=== PATIENT | male | born 1960 | race Caucasian/White ===

== ENCOUNTER → 2017-04-16 14:03 | Outpatient (CLI) | payer BC, SELFPAY ==
--- NOTE | 2017-04-16 14:08 | ECHOD_ITS ---
Reason For Study: Chest pain Procedure This was a 2D Doppler, Color Flow transthoracic echocardiogram. The exam was of fair technical quality due to body habitus. Exam performed in department. Left Ventricle Normal LV size. Left ventricular systolic function is normal. The estimated ejection fraction is 60 %. No evidence for diastolic dysfunction. No regional wall motion abnormalities noted. Right Ventricle Normal RV size. Normal systolic function. Atria Normal left atrium. Normal right atrium. Positive agitated saline contrast study for a right to left interatrial shunt c/w a PFO vs. ASD. Mitral Valve There is no mitral annular calcification. Normal mitral valve. Trivial mitral valve insufficiency. Tricuspid Valve Normal tricuspid valve. Trivial tricuspid valve insufficiency. Right ventricular systolic pressure estimated to be 20 mmHg. Aortic Valve Trisinus/trileaflet aortic valve. Normal aortic valve. Pulmonic Valve The pulmonic valve is not well visualized. Great Vessels Normal sized aortic root. Pericardium/Pleural No pericardial effusion. Medication 22 gauge I.V. with prn adaptor inserted into right arm. Performed a rapid injection of agitated mix of 9 cc saline and 1cc air to assess for atrial septal defect. MMode/2D Measurements & Calculations LVIDd: 3.8 cm IVSd: 1.3 cm Ao root diam: 3.4 cm LVIDs: 1.7 cm LVPWd: 1.2 cm LA dimension: 4.6 cm RVDd: 4.1 cm FS: 54.5 % LAV(MOD-bp): 54.3 ml LA A4 area: 17.9 cm2 RA A4 area: 15.3 cm2 LAV(MOD-bp) Indexed: 25.8 ml/m2 LAV(MOD-sp2): 59.8 ml LAV(MOD-sp4): 51.0 ml Doppler Measurements & Calculations MV E max lester: 75.9 cm/sec Lat Peak E' Lester: 12.3 cm/sec Med Peak E' Lester: 7.6 cm/sec MV A max lester: 54.4 cm/sec E/E' lat: 6.2 E/E' med: 10.0 MV E/A: 1.4 Ao V2 max: 135.2 cm/sec LV V1 max: 100.8 cm/sec PA V2 max: 117.5 cm/sec Ao max P.3 mmHg LV V1 max P.1 mmHg TR max lester: 206.6 cm/sec TR max P.1 mmHg Interpretation Summary Left ventricular systolic function is normal. The estimated ejection fraction is 60 %. Trivial mitral valve insufficiency. Trivial tricuspid valve insufficiency. Right ventricular systolic pressure estimated to be 20 mmHg. No evidence for diastolic dysfunction. Positive agitated saline contrast study for a right to left interatrial shunt c/w a PFO vs. ASD. Ordering Physician: Cynthia Myles Referring Physician: Cynthia Myles Performed By: Telma Renteria RDCS
== END ==
PROVIDERS: Family Provider Internal Medicine; PCP Internal Medicine; Visit Provider Internal Medicine
DX: R07.89 Other chest pain (principal)
CPT/HCPCS: 93306; A4216

== ENCOUNTER → 2017-05-27 06:34 | Outpatient (CLI) | payer BC, SELFPAY ==
--- NOTE | 2017-05-27 18:37 | STRESSREP ---
Stress Test Report Exercise myocardial perfusion stress test. 57-year-old man with a history of chest pain. Stress protocol: Resting EKG demonstrates sinus bradycardia with a rate of 56 bpm normal intervals and noted resting blood pressure is 122/78 mmHg. The patient exercised according to the regular Angel protocol for total duration of 9 minutes completing stage III of the Angel protocol. The maximum heart rate attained was 155 beats minute which was 95% of maximum predicted heart rate the maximum workload attained was 10.1 metabolic equivalents. The patient maintained sinus rhythm throughout the recording with occasional premature atrial complexes noted. No clinical angina was noted the test was terminated due to shortness of breath. Resting blood pressure is 122/78 with a peak blood pressure 180/92 mmHg. Rate pressure product was 27,000. Myocardial perfusion protocol. 11.7 mCi of technetium 99m sestamibi was injected at rest. The patient exercised according to regular Angel protocol for 9 minutes attaining 95% maximum predicted heart rate and a workload of 10.1 metabolic equivalents. At peak exercise 33.3 mCi of technetium 99m sestamibi was injected stress images were obtained stress and rest images were reconstructed and compared in the short axis vertical long horizontal long axis. Gated images were also obtained. Perfusion SPECT analysis. Review of the stress images demonstrate normal uptake of tracer noted in all areas of the myocardium. The resting images similarly demonstrate a patent with perfusion in all areas of the myocardium. No previous infarct is noted no ischemia is present. Gated SPECT analysis: The gated ejection fraction is 61%. Conclusion: Exercise myocardial perfusion stress test with no evidence of ischemia at a high workload. Excellent functional capacity. No symptoms noted. Preserved ejection fraction.
== END ==
PROVIDERS: Family Provider Internal Medicine; PCP Internal Medicine; Visit Provider Internal Medicine Cardiovascular Disease
DX: R00.1 Bradycardia, unspecified (principal); R06.09 Other forms of dyspnea
CPT/HCPCS: 78452; 93017; A9500; A4216

== ENCOUNTER → 2017-09-04 10:05 | Outpatient (CLI) | payer BC, SELFPAY ==
--- NOTE | 2017-09-04 10:08 | ECHOTEE_ITS ---
Reason For Study: PFO Medication Topex topical spray given x3 metered doses orally. KAYLAH probe passed with minimal difficulty. No complications were noted. Fentanyl 50 mcg given slow IVP. Versed 2 mg given slow IVP. Performed a rapid injection of agitated mix of 9 cc saline and 1cc air to assess for atrial septal defect. Left Ventricle Normal LV size. Left ventricular systolic function is normal. The estimated ejection fraction is 65 %. No regional wall motion abnormalities noted. Right Ventricle Normal RV size. Normal systolic function. Atria Patent foramen ovale. Normal left atrium. Normal right atrium. Mitral Valve Normal mitral valve. Mild (1+) eccentric mitral valve insufficiency. Tricuspid Valve Normal tricuspid valve. Aortic Valve Normal aortic valve. Trisinus/trileaflet aortic valve. Pulmonic Valve Normal pulmonic valve. Vessels Normal aortic root. The pulmonary artery is normal size. Pericardium No pericardial effusion. Interpretation Summary Normal LV size. Left ventricular systolic function is normal. The estimated ejection fraction is 65 %. Patent foramen ovale. Mild (1+) eccentric mitral valve insufficiency. Ordering Physician: Roque Berger Referring Physician: GENNY GUZMAN Performed By: Eve Andrade RDCS ??? Reason For Study: PFO Interpretation Summary Normal LV size. Left ventricular systolic function is normal. The estimated ejection fraction is 65 %. Patent foramen ovale. Mild (1+) eccentric mitral valve insufficiency. Ordering Physician: Roque Berger Referring Physician: GENNY GUZMAN Performed By: Eve Andrade RDCS
== END ==
PROVIDERS: Family Provider Internal Medicine; PCP Internal Medicine; Visit Provider Internal Medicine Cardiovascular Disease
DX: Q21.1 Atrial septal defect (principal)
CPT/HCPCS: 93312; 93320; 93325; J7040

== ENCOUNTER → 2018-12-20 08:06 | Outpatient (CLI) | payer BC, SELFPAY ==
[2018-12-20 08:34] LABS: Absolute Lymphocyte Count 1.93 X10^3/uL (0.83-4.51); Absolute Neutrophil Count 2.8 X10^3/uL (2.0-7.7); Basophil# 0.05 X10^3/uL; Basophil% 0.9 % (0-1); Eosinophil# 0.16 X10^3/uL; Lymphocyte # 1.93 X10^3/ul (4.0); Lymphocyte % 35.6 % (19-41); Mean Corpuscular Volume 91.1 fL (80-94); Mean Platelet Vol. 9.5 fl (6.2-12.0); Monocyte# 0.52 X10^3/uL; Monocyte% 9.6 % (0-10); NRBC Flagged by Analyzer 0 % (0-5); Neutrophil # 2.75 X10^3/uL (2.7-7.7); Neutrophil % 50.7 % (47-70); Platelet Count 252 K/mm3 (150-450); RBC Distribution Width CV 11.7 % (11.6-14.6); RBC Distribution Width SD 39.5 fl (35.1-43.9); Red Blood Count 5.16 M/mm3 (4.6-6.2); White Blood Count 5.4 K/mm3 (4.4-11.0)
[2018-12-20 09:26] LABS: ALB/GLOB Ratio 1.2 RATIO (0.9-2.4); AST(SGOT) 34 U/L (15-37); Alanine Aminotransfer ALT/SGPT 57 U/L (16-61); Albumin, Serum 3.9 g/dL (3.2-5.0); Alkaline Phosphatase 64 U/L (45-117); Anion Gap 4 (5-15); BUN 15 mg/dL (7-18); BUN/Creat Ratio 15.9 RATIO (10-20); Calcium,Total 9.3 mg/dL (8.5-10.1); Chloride 107 mmol/L (98-107); Creatinine, Serum 0.94 mg/dL (0.70-1.30); EST Glomerular Filtration Rate 87 mL/min (>60); Est Glom Filt Rate - Afr Amer 105 mL/min (>60); Globulin 3.2 g/dL (2.2-4.2); Glucose 128 mg/dL (74-106); Potassium 4.4 mmol/L (3.5-5.1); Protein, Total 7.1 g/dL (6.4-8.2); Sodium Level 140 mmol/L (136-145)
[2018-12-22 14:08] LABS: CHOLESTEROL TOTAL 205 mg/dL (100-199); HDL-C 49 mg/dL (>39); HDL-P TOTAL 40.7 umol/L (>=30.5); SMALL LDL-P 1072 nmol/L (<=527); TRIGLYCERIDES 160 mg/dL (0-149)
[2018-12-22 14:38] LABS: INSULIN RESISTANCE SCORE 45 (<=45); LDL SIZE 20.2 nm (>20.5); LDL-C 124 mg/dL (0-99); LDL-P 1687 nmol/L (<1000)
== END ==
PROVIDERS: Family Provider Internal Medicine; PCP Internal Medicine; Referring Provider Internal Medicine; Visit Provider Internal Medicine
DX: E78.00 Pure hypercholesterolemia, unspecified (principal)
CPT/HCPCS: 36415; 80053; 80061; 83704; 84443; 85025

== ENCOUNTER → 2019-05-29 | Outpatient (CLI) | payer BC, SELFPAY ==
[2017-05-15 10:08] VITALS: BMI 30.2
--- NOTE | 2019-05-29 09:05 | RAD_ITS ---
STUDY: X-RAY CHEST REASON FOR EXAM: Male, 59 years old. COUGH, SOB AND SOME CHEST PAINS X 4-5 DAYS. TECHNIQUE: PA and lateral views of the chest. COMPARISON: None. FINDINGS: The lungs are clear and expanded. There is no demonstrated pleural abnormality. Normal size heart. Normal mediastinum and margot. Normal visualized pulmonary arteries. There is atherosclerotic tortuosity of the aortic arch and descending thoracic aorta. There are mild degenerative changes of the visualized thoracic spine. Normal visualized ribs, clavicles, and shoulders. There is no demonstrated abnormality of the visualized soft tissue structures of the upper abdomen. RAD/Chest PA and Lateral IMPRESSION: No acute abnormality is seen. Electronically Signed: Maynor Alexander, at 9:49 EDT , Service support ,
== END | disposition home or self-care (01) ==
LOC: HPRAD 09:01
PROVIDERS: PCP Internal Medicine; Referring Provider Internal Medicine; Visit Provider Internal Medicine
DX: Z03.818 Encounter for observation for suspected exposure to other biological agents ruled out (principal)
CPT/HCPCS: 71046

== ENCOUNTER 2020-05-10 08:49 | Outpatient (RCR) | payer BC, SELFPAY ==
[2017-05-15 10:08] VITALS: BMI 30.2
[2020-05-10] MEDS: COVID-19 VACC, MRNA(PFIZER)/PF 30 MCG/0.3 ML SYRINGE IM (17:51)
[2020-05-31] MEDS: COVID-19 VACC, MRNA(PFIZER)/PF 30 MCG/0.3 ML SYRINGE IM (18:09)
== END 2020-05-10 23:59 ==
LOC: IMMUN 08:49
PROVIDERS: PCP Internal Medicine; Visit Provider Family Medicine
DX: Z23 Encounter for immunization (principal)
CPT/HCPCS: 0001A; 0002A; 91300

== ENCOUNTER 2020-12-07 16:04 | Outpatient (CLI) | payer BC, SELFPAY ==
[2020-12-07] MEDS: 0.9% Saline Lock 10 ML Syringe IV (16:40)
[2020-12-07 16:50] VITALS: BP 133/64; PULSE 112; RESP 16; TEMP 36.7; O2SAT 95; BMI 27.1
[2020-12-07 17:28] VITALS: BP 118/77; PULSE 56; RESP 16; TEMP 36.7; O2SAT 97
[2020-12-07 18:20] VITALS: BP 126/84; PULSE 55; RESP 16; TEMP 36.6; O2SAT 99
== END 2020-12-07 18:21 | disposition home or self-care (01) ==
LOC: MS3OUT 16:04 → MS3 16:05
PROVIDERS: PCP Internal Medicine; Referring Provider Nurse Practitioner Adult Health; Visit Provider Nurse Practitioner Adult Health
DX: Z23 Encounter for immunization (principal); U07.1 COVID-19
CPT/HCPCS: J7050; M0243; A4216; Q0240

== ENCOUNTER → 2021-12-08 | Outpatient (CLI) | payer BC, SELFPAY ==
--- NOTE | 2021-12-08 09:13 | ECHOD_ITS ---
Reason For Study: CHEST PAIN Procedure This was a 2D Doppler, Color Flow transthoracic echocardiogram. Exam performed in department. Left Ventricle Normal LV size. The estimated ejection fraction is 55 %. No evidence for diastolic dysfunction. No regional wall motion abnormalities noted. Right Ventricle Normal RV size. Normal systolic function. Atria Normal left atrium. Normal right atrium. Mitral Valve There is no mitral valve stenosis. No mitral valve insufficiency. Tricuspid Valve There is no tricuspid stenosis. Trivial tricuspid valve insufficiency. Unable to estimate RV systolic pressure due to insufficient tricuspid regurgitant envelope. Aortic Valve Trisinus/trileaflet aortic valve. There is no aortic stenosis. Trivial aortic valve insufficiency. Pulmonic Valve There is no pulmonic valvular stenosis. No pulmonic valve insufficiency. Great Vessels Normal aortic root. Pericardium/Pleural No pericardial effusion. MMode/2D Measurements & Calculations LVIDd: 5.2 cm IVSd: 0.87 cm Ao root diam: 3.5 cm LVIDs: 3.3 cm LVPWd: 0.82 cm RVDd: 4.6 cm FS: 36.2 % LAV(MOD-sp4): 46.7 ml LVAd ap4: 36.4 cm2 SV(MOD-sp4): 69.1 ml LVLd ap4: 9.8 cm EDV(MOD-sp4): 109.3 ml EDV(sp4-el): 115.0 ml LVAs ap4: 19.3 cm2 LVLs ap4: 8.2 cm ESV(MOD-sp4): 40.2 ml ESV(sp4-el): 38.3 ml EF(MOD-sp4): 63.2 % EF(sp4-el): 66.7 % SV(sp4-el): 76.7 ml LA A4 area: 18.6 cm2 LA dimension(2D): 4.2 cm RA A4 area: 18.6 cm2 Time Measurements MV dec time: 0.23 sec Doppler Measurements & Calculations MV E max lester: 52.8 cm/sec Lat Peak E' Lester: 11.8 cm/sec Med Peak E' Lester: 7.6 cm/sec MV A max lester: 49.3 cm/sec E/E' lat: 4.5 E/E' med: 6.9 MV E/A: 1.1 MV V2 max: 50.5 cm/sec Ao V2 max: 128.9 cm/sec MV max P.0 mmHg MV dec slope: 231.1 cm/sec2 Ao max P.7 mmHg MV V2 mean: 32.5 cm/sec Ao V2 mean: 91.0 cm/sec MV mean P.46 mmHg Ao mean P.8 mmHg MV V2 VTI: 25.4 cm Ao V2 VTI: 29.3 cm LV V1 max: 100.1 cm/sec PA V2 max: 102.9 cm/sec LV V1 max P.0 mmHg PA V2 mean: 68.5 cm/sec LV V1 mean P.1 mmHg LV V1 mean: 65.6 cm/sec LV V1 VTI: 23.1 cm ECHO/Echo Complete Interpretation Summary The estimated ejection fraction is 55 %. No evidence for diastolic dysfunction. Trivial aortic valve insufficiency. Ordering Physician: Cynthia Myles Referring Physician: Cynthia Myles Performed By: Samantha Larios RCS
== END | disposition home or self-care (01) ==
PROVIDERS: PCP Internal Medicine; Referring Provider Internal Medicine; Visit Provider Internal Medicine
DX: R07.9 Chest pain, unspecified (principal)
CPT/HCPCS: 93306

== ENCOUNTER → 2021-12-11 | Outpatient (CLI) | payer BC, SELFPAY ==
--- NOTE | 2021-12-11 11:05 | STRESSREP ---
Stress Test Report Date: 12-11-2021 Procedure: Exercise tolerance test/imaging study Indications: Chest pain Consent: Per the patient Procedure: The patient exercised on a Angel protocol for 9 minutes completing Stage III achieving a peak heart rate of 153 bpm (96% predicted maximal heart rate) with resting blood pressure of 120/72 mmHg and a peak blood pressure 164/74 mmHg and a peak MET capacity of 10 METs. The baseline ECG demonstrated sinus bradycardia. The peak exercise ECG demonstrated no obvious ECG changes. There was an isolated PVC during exercise. The functional capacity was considered good. There was no complaint of chest discomfort during exercise or recovery. The examination was discontinued secondary to leg discomfort. Impression: 1. Technically adequate (percent predicted maximal heart rate greater than 85%) exercise tolerance test 2. Peak exercise ECG with no obvious ECG change 3. There was an isolated PVC during exercise 4. Nuclear images pending Myocardial perfusion imaging study: Technique: The patient was injected with 11.8 mCi of technetium 99m Cardiolite and subsequently rest SPECT Cardiolite nuclear imaging was obtained in the horizontal long, vertical long, and short axis views. The patient exercised on a Angel protocol for 9 minutes completing Stage III achieving a peak heart rate of 153 bpm (96% predicted maximal heart rate) with resting blood pressure of 120/72 mmHg and a peak blood pressure 164/74 mmHg and a peak MET capacity of 10 METs. The patient was injected with 33.3 mCi of technetium 99m Cardiolite and subsequently stress SPECT Cardiolite nuclear imaging was obtained in the horizontal long, vertical long, and short axis views. A gated Cardiolite study at peak stress was obtained. Interpretation: Rest and stress SPECT Cardiolite nuclear imaging status post realignment, normalization, and attenuation correction, demonstrates relative uniform tracer uptake and myocardial perfusion appearing within normal limits. There is end systolic thickening and brightening. The gated Cardiolite study demonstrates myocardial thickening and inward wall motion. The reported LVEF is 66%. Impression: 1. Relative uniform tracer uptake and myocardial perfusion appearing within normal limits. 2. The gated Cardiolite study reports an LVEF of 66%. This note was generated with [employer] software. It may contain incorrect words, spelling, and punctuation that were not noted in checking the note before signing.
== END | disposition home or self-care (01) ==
PROVIDERS: PCP Internal Medicine; Referring Provider Internal Medicine; Visit Provider Internal Medicine
DX: R41.0 Disorientation, unspecified (principal)
CPT/HCPCS: 78452; 93017; A9500; A4216

== ENCOUNTER → 2022-04-03 | Outpatient (CLI) | payer BC, SELFPAY ==
--- NOTE | 2022-04-03 09:24 | US_ITS ---
STUDY: ABDOMINAL ULTRASOUND - RIGHT UPPER QUADRANT REASON FOR VISIT: Male, 62 years old FATTY LIVER TECHNIQUE: Ultrasound evaluation of the right upper quadrant was performed with real-time and static girard-scale imaging. TECHNICAL QUALITY: Adequate. COMPARISON: None. FINDINGS: Liver: The liver measures 18.7 cm. There is diffusely increased echogenicity of the liver. The bile ducts are within normal limits. There is hepatic color flow. The direction of portal flow is hepatopetal. There is no demonstrated mass lesion. There is focal fatty sparing adjacent to the gallbladder. Gallbladder: Normal distended gallbladder. The gallbladder wall measures 2.7 mm. There is a negative sonographic Mojica''s sign. There is no pericholecystic fluid. There are no gallstones. Common Bile Duct (C.B.D.): The common bile duct measures 4.8 mm. Pancreas: Suboptimally visualized due to bowel gas producing artifact Right Kidney: Normal size of the right kidney. The right kidney measures 11.5 x 5.5 x 6.3 cm. Normal renal cortex. The right cortex measures 2 cm. There is no demonstrated renal mass or cyst. There is no right hydronephrosis. US/Liver IMPRESSION: Enlarged fatty infiltrated liver.. No evidence for gallstones or acute inflammation. Suboptimal visualization of pancreas which may be better assessed with CAT scan if indicated Electronically Signed: Aleksander Downey MD at 19:36 EST ,
== END | disposition home or self-care (01) ==
PROVIDERS: PCP Internal Medicine; Referring Provider Internal Medicine; Visit Provider Internal Medicine
DX: K76.0 Fatty (change of) liver, not elsewhere classified (principal)
CPT/HCPCS: 76705

== ENCOUNTER → 2023-10-07 | Outpatient (CLI) | payer OTHER, SELFPAY ==
--- NOTE | 2023-10-07 11:16 | US_ITS ---
STUDY: SUPERFICIAL ULTRASOUND - LEFT LEG REASON FOR EXAM: Male, 63 years old. leg mass, left TECHNIQUE: A superficial ultrasound was performed with real-time and static girard-scale imaging. COMPARISON: None. FINDINGS: Multiple longitudinal and transverse 4 cm the left leg confirm a 0.5 x 1.8 cm oval hypoechoic mass of the subcutaneous fat of uncertain etiology and significance, possibly a chronic hematoma. US/Ext Non Vasc Limited/Soft Tiss IMPRESSION: Ultrasound confirms a 1.8 cm oval hypoechoic mass, possible chronic hematoma of the subcutaneous fat Electronically Signed: Chandler uH MD at 13:58 EDT ,
== END | disposition home or self-care (01) ==
LOC: US 11:13
PROVIDERS: PCP Internal Medicine; Referring Provider Internal Medicine; Visit Provider Internal Medicine
DX: R22.42 Localized swelling, mass and lump, left lower limb (principal)
CPT/HCPCS: 76882

== ENCOUNTER 2024-01-27 08:41 | Day surgery (SDC) | payer OTHER, SELFPAY ==
[2024-01-27] VITALS (13 sets, daily range): BP systolic 114–137; BP diastolic 73–92; PULSE 55–85; RESP 16–18; TEMP 36.3–36.8; O2SAT 90–100; BMI 28.1
[2024-01-27] MEDS: Lactated Ringers 1,000 ML 15 ML IV (09:15)
--- NOTE | 2024-01-27 09:15 | EKG12_ITS ---
Test Reason : pre op Blood Pressure : */* mmHG Vent. Rate : 55 BPM Atrial Rate : 55 BPM P-R Int : 214 ms QRS Dur : 88 ms QT Int : 418 ms P-R-T Axes : 23 4 9 degrees QTcB Int : 399 ms Sinus bradycardia with 1st degree A-V block Inferior infarct (cited on or before 16-Jul-2003) Abnormal ECG When compared with ECG of 16-Jul-2003 09:02, [place] interval has increased Confirmed by Simone Oconnor ([id number]), communications editor RAÚL SOFIA ([id number]) on 01/28/2024 1:52:38 PM Referred By: Julian Allred Confirmed By: Simone Oconnor
--- NOTE | 2024-01-27 09:22 | PCM.PRE.AN2 ---
ASA Classification* ASA Classification ASA Classification: 2 Assessment & Plan Anesthesia* Anesthesia Assessment Anesthesia Assessment: Discussed sedation and/or anesthesia options, risks, benefits, and alternatives with patient/parents/legal guardian/POA. Questions invited. The patient/parents/legal guardian/POA seems to understand and agrees to proceed with anesthesia plan. Reviewed the physical assessment, medical history, allergy history and patient home medications list prior to surgery/procedure/anesthetic and documented any changes. Performed airway and anesthesia risk assessments. Anesthesia Type Anesthesia Type: General Anesthesia Focused Assessment* Temperature: 97.3 F Pulse Rate: 55 Blood Pressure: 126/86 Respiratory Rate: 16 Pulse Ox: 100 Airway Assessment Mouth opens: >3 cm Mallampati Score: II Focused Labs Anesthesia Preop lab: CBC WBC 5.4 K/mm3 (4.4-11.0) 12/20/18 08:11 RBC 5.16 M/mm3 (4.6-6.2) 12/20/18 08:11 Hgb 16.0 g/dL (13.0-16.5) 12/20/18 08:11 Hct 47.0 % (40-54) 12/20/18 08:11 Plt Count 252 K/mm3 (150-450) 12/20/18 08:11 CHEMISTRY Potassium 4.4 mmol/L (3.5-5.1) 12/20/18 08:11 Sodium 140 mmol/L (136-145) 12/20/18 08:11 BUN 15 mg/dL (7-18) 12/20/18 08:11 Creatinine 0.94 mg/dL (0.70-1.30) 12/20/18 08:11 Glucose 128 mg/dL (74-106) H 12/20/18 08:11 TSH 1.50 uIU/mL (0.358-3.74) 12/20/18 08:11 COAG Pre-Assessment Diagnosis/Proposed Procedure Planned Operative Procedure(s): ROBOTIC ASSISTED UMBILICAL HERNIA REPAIR WITH MESH Anesthesia History Anesthesia History - wound care center consultant: Anesthesia History - wound care center consultant Hx Hospitalization No 01/20/24 12:57 Any Problems With Anesthesia Yes: SLOW TO AWAKEN 01/20/24 12:57 Cholinesterase deficiency No 01/20/24 12:57 You/Your Family Experience No 01/20/24 12:57 fever (hyperthermia) with Relationship Recent Exposure to Contagious No 01/27/24 09:02 Disease Does patient have nerve No 01/20/24 12:57 stimulator Patient instructed to have device shut off --Does patient have Pacemaker No 01/27/24 09:02 or ICD? When Was Last Pacemaker Check QUESTION #4 FULL TEXT: You/Your Family Experience fever (hyperthermia) with Anesthesia Last Oral Intake Last Oral intake: Last Oral Intake NPO since Meds taken in AM with sips of water? Meds patient instructed to take am of surgery PONV PONV - wound care center consultant: PONV - wound care center consultant Female No 01/20/24 12:57 HX of Motion Sickness No 01/20/24 12:57 HX of N/V After Surgery No 01/20/24 12:57 Non-Smoker Yes 01/20/24 12:57 Duration of Surgery greater Yes 01/20/24 12:57 than 60 minutes Number of Risk Factors 2 01/20/24 12:57 PONV Score Moderate Risk 01/20/24 12:57 Height & Weight Height & Weight: Anesthesia: Height & Weight Height 5 ft 10 in 01/27/24 09:02 Weight: 89 kg 01/27/24 09:02 Body Mass Index (BMI) 28.1 01/27/24 09:02 Respiratory Assessment Respiratory Assessment - wound care center consultant: Respiratory Tract Infection Hx - wound care center consultant Hx Respiratory Tract Infection No 01/20/24 12:57 STOP Sleep Apnea STOP Sleep Apnea - wound care center consultant: STOP Sleep Apnea - wound care center consultant Hx Hypertension No 01/20/24 12:57 Hx Sleep Apnea No 01/20/24 12:57 CPAP BIPAP Do you snore loudly (louder No 01/20/24 12:57 than talking or can be heard Do you often feel tired/ No 01/20/24 12:57 fatigued/ sleepy during daytime? Has anyone observed you stop No 01/20/24 12:57 breathing during sleep? STOP Results Negative 01/20/24 12:57 QUESTION #5 FULL TEXT : Do you snore loudly (louder than talking or can be heard through closed doors)? Tobacco Use History Tobacco Use History - wound care center consultant: Tobacco Use History - wound care center consultant Tobacco Use Smoking Status Never smoker 01/20/24 12:57 Hx Tobacco Use No 01/20/24 12:57 Years Smoking Packs Smoked per Day Smoking Cessation Date was within the last 15 years Hx Smoking Cessation Date Hx Smoking Cessation Counseling Hematologic Medial History Hematologic Hx - wound care center consultant: Hematologic Medical Hx - documentation manager Hx of Blood Transfusion No 01/20/24 12:57 Hx of Transfusion in last 3 No 01/20/24 12:57 Months Date of Last Transfusion (if within last 3 months) Ever experience any problems No 01/20/24 12:57 with transfusion(s)? Specify any problems Hx of Preganancy in last 3 N/A 01/20/24 12:57 Months Nurse Filling Out Transfusion DSCHRIBER 01/20/24 12:57 & Questions: Date: 01/20/24 01/20/24 12:57 Time: 12:59 01/20/24 12:57 Patient unable to answer at this time (ie. confused, unrespo /Reproduction History /Reproductive History - wound care center consultant: /Reproductive Hx- wound care center consultant Hx Now No 01/20/24 12:57 Gestational Age (in weeks): EDC: Hx Hx Para Hx Section SAB No 01/20/24 12:57 Active Medications Active Medications: Current Medications Generic Name Dose Route Start Last Admin Trade Name Freq PRN Reason Stop Dose Admin Cefazolin Sodium 2 gm/ N/A 20 mls @ 400 mls/hr 01/27/24 10:30 IV 01/27/24 10:32 PREOP ONE Lactated Ringer's 1,000 mls @ 15 mls/hr 01/27/24 09:00 01/27/24 09:15 IV 02/01/24 22:19 15 mls/hr .Q48H SARA Administration Protocol PFSH Medical History Hx of closed fracture of nasal bones Wears hearing aid Loss of hearing Marijuana use Alcohol use History of ulceration Non-smoker Cardiology follow-up encounter History of echocardiogram History of stress test Hx of fracture of ankle Umbilical hernia without obstruction or gangrene Metabolic syndrome Fatty liver Chemical exposure Obesity GERD (gastroesophageal reflux disease) Hyperlipidemia Home Medications ?Medication ?Instructions ?Recorded ?Last Taken ?Type fenofibrate nanocrystallized 48 mg 48 mg PO QDAY 90 days #90 tabs 05/14/17 Unknown History tablet omeprazole 40 mg capsule,delayed 40 mg PO QDAY 90 days #90 caps 05/14/17 Unknown History release pravastatin 20 mg tablet 80 mg PO QHS 90 days #360 tabs 01/15/24 Unknown History Allergy/AdvReac Type Severity Reaction Status Date / Time No Known Allergies Allergy Verified 01/27/24 09:02 Family History Brother Cancer Pancreatic cancer Sister Cancer kidney cancer Father Cancer glioma Mother Hypertension Sister Heart disease Congenital heart disease Surgical History Hx of colonoscopy History of carpal tunnel surgery of right wrist History of carpal tunnel surgery of left wrist Social History Smoking Status: Never smoker alcohol intake: never caffeine: Yes Type: coffee Number of servings: 4 Review of Systems (Anesthesia) ROS Narrative System reviewed and no additional complaints, except as documented.
--- NOTE | 2024-01-27 09:24 | HP.PCM_ITS ---
HPI - General General Date of Admission: 01/27/24 Date of Service: 01/27/24 Chief Complaint: umbilical hernia HPI Narrative JUAN CARLOS BARRON, is a 63 M who presents for elective robotic repair of umbilical hernia [facility] Medical History Hx of closed fracture of nasal bones Wears hearing aid Loss of hearing Marijuana use Alcohol use History of ulceration Non-smoker Cardiology follow-up encounter History of echocardiogram History of stress test Hx of fracture of ankle Umbilical hernia without obstruction or gangrene Metabolic syndrome Fatty liver Chemical exposure Obesity GERD (gastroesophageal reflux disease) Hyperlipidemia Home Medications ?Medication ?Instructions ?Recorded ?Last Taken ?Type fenofibrate nanocrystallized 48 mg 48 mg PO QDAY 90 days #90 tabs 05/14/17 Unknown History tablet omeprazole 40 mg capsule,delayed 40 mg PO QDAY 90 days #90 caps 05/14/17 Unknown History release pravastatin 20 mg tablet 80 mg PO QHS 90 days #360 tabs 01/15/24 Unknown History Allergy/AdvReac Type Severity Reaction Status Date / Time No Known Allergies Allergy Verified 01/27/24 09:02 Family History Brother Cancer Pancreatic cancer Sister Cancer kidney cancer Father Cancer glioma Mother Hypertension Sister Heart disease Congenital heart disease Surgical History Hx of colonoscopy History of carpal tunnel surgery of right wrist History of carpal tunnel surgery of left wrist Social History Smoking Status: Never smoker alcohol intake: never caffeine: Yes Type: coffee Number of servings: 4 Vital Signs Vital Signs Vital Signs: 01/27/24 09:02 01/27/24 09:02 01/27/24 09:23 Temperature 97.3 F L 97.3 F L Temperature Source Temporal Pulse Rate 55 L 55 L Respiratory Rate 16 16 Respiratory Pattern Normal Blood Pressure 126/86 H 126/86 H Blood Pressure Mean 99 Blood Pressure Source Monitor Blood Pressure Position Semi-Fowlers Blood Pressure Location Left Arm Pulse Ox 100 100 Oxygen Delivery Method Room Air Weight Weight: 196 lb 3.382 oz Body Mass Index (BMI) 28.1 Physical Exam Narrative AAO x 3 abd soft and non tender umbilical hernia unchanged Assessment & Plan Assessment/Plan (1) Umbilical hernia without obstruction or gangrene: PLAN: Plan scheduled for robotics repair with mesh Charges/Coding Visit Charges Inpatient E&M: 43490 Init Hosp L1
[2024-01-27] MEDS: Cefazolin 2 GM in Syringe IV (10:08)
[2024-01-27] MEDS: Gentamicin 80 MG/2 ML Vial (10:56)
[2024-01-27] MEDS: Bupiv/Epi 0.25% 30 ML Vial (14:42)
--- NOTE | 2024-01-27 15:04 | EX.PCM.DISCH ---
Discharge Instructions Diet Discharge Diet: Light diet - advance as tolerated Activity Discharge Activity: May Shower Ice area for (Minutes): 30 Lifting Restrictions: no lifting over 20 pounds for 6 weeks Additional Activity Instructions:: wear abdominal binder for comfort Dressing / Incision Call your doctor if your incision/area has: Continuous Slow Oozing, Sudden Increased Bleeding, Increased Pain/ Swelling, Increased Redness, Foul Smelling Discharge, Swelling at the incision site and - Call your doctor if you observe: Fever of 101 or Higher Remove Dressing in: 1 week Cleanse incision/area with: Soap & Water Follow Up Care Please Follow Up With: Julian Allred MD When: 2 weeks Test Results: Test results from this visit will be discussed in further detail at your follow-up appointment, if applicable. Discharge Plan Admission Primary Reason for Your Visit: umbilical hernia repair Attending Provider: Julian Allred Primary Care Provider: Cynthia Myles Instructions Print Language: Marshallese Discharge Orders/Prescriptions Prescriptions: New oxycodone-acetaminophen [Percocet] 5-325 mg tablet 1 tab PO Q8H PRN (Reason: pain) 3 Days Qty: 14 0RF No Action omeprazole 40 mg capsule,delayed release(DR/EC) 40 mg PO QDAY 90 Days Qty: 90 Patient Comments: fenofibrate nanocrystallized 48 mg tablet 48 mg PO QDAY 90 Days Qty: 90 Patient Comments: pravastatin 20 mg tablet 80 mg PO QHS 90 Days Qty: 360 Patient Comments: Referrals / Follow Up: Cynthia Myles DO [Primary Care Provider] - Disposition Disposition (needs filled in before D/C Order can be placed): Home, Self Care
--- NOTE | 2024-01-27 15:13 | PCM.POST.ANE ---
Anesthesia: Postop Eval I Current Vital Signs Temperature: 97.4 F Pulse Rate: 71 Blood Pressure: 132/80 Respiratory Rate: 18 Pulse Ox: 93 Assessment Airway patent: Yes Spontaneous unlabored respirations: Yes nausea: No Vomiting: No Anesthesia Complication: No Fluid Hydration Crystalloid volume administer (ml): 2,000 Total IV fluid infused: 2,000 Progress Note Anesthesia document: Postop Eval 1 completed: Yes
--- NOTE | 2024-01-27 15:33 | OP.PCM_ITS ---
Problems Associated Problem List Diagnoses (1) Umbilical hernia without obstruction or gangrene: Operative Report (Standard) Operative Information Surgery/Procedure Performed: Attempted robotic umbilical hernia repair converted to open umbilical hernia repair Surgeon: Julian Allred Date of Procedure: 01/27/24 Procedure Start Time: 10:33 Procedure Stop Time: 15:04 Pre-Operative Diagnosis: Umbilical hernia Post-Operative Diagnosis: Same Select all DRAINS/GRAFTS/IMPLANTS that apply: None Type of Anesthesia: General and Local Special Medications: 2 g Ancef IV Estimated Blood Loss: 10 cc Specimen collected: No Description of surgery: The patient is a 63-year-old male who was recently seen through the office with an umbilical hernia. He had had this hernia for a number of years. This was becoming larger and more symptomatic. He wished to have this repaired. I offered him a robotic repair with mesh. We discussed the details of the planned procedure including risks benefits and alternatives. He wished to proceed. The patient was brought to the op room today following informed consent. Preoperative antibiotics were given and a timeout was performed. He was placed supine the operative table with arms outstretched on arm boards. General anesthesia was induced. The abdomen was then prepped and draped in the usual sterile manner. The bed was flexed and there was some slight roll to the right. The initial incision was an 8 mm incision in the lateral left abdomen. Through this incision a 5 mm optical trocar was placed optically. This was placed wit hout incident. Once in place the abdomen is then fully insufflated with CO2 gas. 5 mm 0 degree scope was inserted. There were no signs of bowel or vascular injury. Next, an 8 mm incision and trocar was placed under direct visualization in the left upper lateral abdomen. This was placed without incident and under direct visualization. Another 8 mm trocar was placed in the left lower quadrant. The robot was then docked and I was able to assume control. The hernia was visible.. The peritoneum was then incised laterally in a superior to inferior direction using electrocautery and curved scissors. The plane was then developed using electrocautery connected to a scissors as well as blunt dissection with a grasper. This plane was carried towards the midline. The hernia sac was encountered. A significant amount of time was utilized to try to reduce the hernia. This was extremely tightly adherent and very chronic in nature. The hernia sac was grasped with 1 hand, and electrocautery was used to try to free up the hernia sac using scissors and electrocautery. The hernia sac was actually quite large. This was eventually able to be dissected off of the umbilical skin with much effort. This was unusually and extremely adherent. The skin of the umbilicus was very thin as well. Once the hernia sac was reduced, the apparent fascial defect was then closed using strata fix suture in a running manner. I had to use small bites as this seemed very close to the overlying skin. Next, ProGrip mesh was trimmed to approximately 7 x 8 cm and was applied over the closure. Following this, the peritoneal flap was then closed in a running manner using V-Loc suture. This closed the peritoneum nicely. I then turned my attention back to the patient's abdomen externally, and it appeared that his umbilicus was protruding outward and could not be reduced inward in a normal anatomic manner. It was at this point that it was realized that the dermis around the umbilicus was most likely closed with the strata fix suture. To rectify this, an open approach incision was then made around the superior aspect of the umbilicus. Upon examination, the dermis around the umbilicus was indeed closed with the strata fix suture. This was cut and removed. It was noted that the fascial defect size was actually larger than anticipated. It was also noted that the mesh was actually superficial to the fascia and was folded. The mesh was then removed. The fascial edges were then grasped with Jeffrey clamps and then the overlying subcutaneous tissue was cleared from the fascial edges. The fascial edges were then closed in an interrupted [id number] manner using several #2 Ethibond sutures. The fascial defect size was approximately 5-6 cm. I felt that the fascia was well-approximated without significant tension. The skin of the the base of the umbilicus was then reaffixed to the underlying fascia using a 3-0 Vicryl. This produced the desired inward appearance to the umbilicus. 3-0 Vicryl was then used to close the subdermal layer of this umbilical incision. Finally 4-0 Vicryl was then run in the skin to close the periumbilical incision as well as the 3 lateral incisions. Skin glue was applied to all incisions. A Mepilex silver dressing was then applied to the umbilical incision. An abdominal binder was placed and he was awakened from anesthesia and taken to PACU in good condition A FOOD AND DRUG INSPECTOR was utilized as a residential living assistant. His role included assistance with docking of the robot, exchanging instruments and assistance with wound closure Surgical Findings: See operative note Seismographer technical solution architect: Yes Cement Fittings Maker: Berny Austin Tasks completed by delivery driver assistant: Closing Additional assistant distribution manager?: No Complications Complications: No Admit VTE Documentation VTE Present on Admission: No VTE Mechan Device Prophylaxis: SCD's VTE Pharm Prophylaxis ordered?: No Reason prophylaxis not ordered: Treatment Not Indicated Procedures Digestive [id number]: 26804 RPR AA HRN 1ST 3-[address]
--- NOTE | 2024-01-27 16:00 | POSTOPAN2_ITS ---
Anesthesia Postop Eval I Sum Postop Eval Completion status Anesthesia document: Postop Eval 1 completed: Yes Anesthesia Postop Eval I Summary Anesthesia Postop Eval I Summary: Anesthesia Postop Eval I: Assessment Summary Airway patent Yes 01/27/24 15:13 [email or web address] [email or web address] Spontaneous unlabored Yes 01/27/24 15:13 SUPERVISOR [email or web address] [email or web address] respirations Mental status nausea No 01/27/24 15:13 SUPERVISOR [email or web address] [email or web address] Vomiting No 01/27/24 15:13 [email or web address] [email or web address] Anesthesia Postop Eval I: Fluid Summary Crystalloid volume administer 2,000 01/27/24 15:13 SUPERVISOR [email or web address] [email or web address] (ml) Colloids volume administered ( ml) Blood Product volume administered (ml) Total IV fluid infused 2,000 01/27/24 15:13 SUPERVISOR [email or web address] [email or web address] Anesthesia Postop Eval I: Summary Notes Anesthesia Complication No 01/27/24 15:13 SUPERVISOR TOY [email or web address] Anesthesia Complication Comment: Post-operative progress note Anesthesia: Postop Eval II Evaluation Mental status: Awake and Calm Pain Level: 1 nausea: No Vomiting: No Complications Anesthesia Complication: No
--- NOTE | 2024-01-27 16:00 | PCM.POSTANE2 ---
Anesthesia Postop Eval I Sum Postop Eval Completion status Anesthesia document: Postop Eval 1 completed: Yes Anesthesia Postop Eval I Summary Anesthesia Postop Eval I Summary: Anesthesia Postop Eval I: Assessment Summary Airway patent Yes 01/27/24 15:13 [email or web address] Spontaneous unlabored Yes 01/27/24 15:13 [email or web address] respirations Mental status nausea No 01/27/24 15:13 [email or web address] Vomiting No 01/27/24 15:13 [email or web address] Anesthesia Postop Eval I: Fluid Summary Crystalloid volume administer 2,000 01/27/24 15:13 [email or web address] (ml) Colloids volume administered ( ml) Blood Product volume administered (ml) Total IV fluid infused 2,000 01/27/24 15:13 [email or web address] Anesthesia Postop Eval I: Summary Notes Anesthesia Complication No 01/27/24 15:13 [email or web address] Anesthesia Complication Comment: Post-operative progress note Anesthesia: Postop Eval II Evaluation Mental status: Awake and Calm Pain Level: 1 nausea: No Vomiting: No Complications Anesthesia Complication: No
== END 2024-01-27 17:48 | disposition home or self-care (01) ==
LOC: SDC 08:49 → AC 08:49
PROVIDERS: PCP Internal Medicine; Referring Provider Surgery; Visit Provider Surgery
PROC: (CPT 49593; principal; 2024-01-27 10:15)
DX: K42.9 Umbilical hernia without obstruction or gangrene (principal); E78.5 Hyperlipidemia, unspecified; K21.9 Gastro-esophageal reflux disease without esophagitis; Z79.899 Other long term (current) drug therapy
CPT/HCPCS: 49593; S2900; 00830; 93005; J2405

== ENCOUNTER 2024-01-31 16:13 | Emergency (ER) | payer OTHER, SELFPAY ==
[2024-01-31 16:14] VITALS: BP 138/99; PULSE 87; RESP 16; TEMP 36.8; O2SAT 98; BMI 27.1
--- NOTE | 2024-01-31 18:45 | EDS_ITS ---
HPI History of Present Illness Chief Complaint: Abd Pain Informant: patient and spouse/S.O. Narrative Narrative: 3-day postop elective umbilical hernia repair by Dr. Allred. Per spouse robotic surgery that took 4 and half hours rather than delay plan 1 hour. He had not had a bowel movement since a day prior to surgery. He felt abdominal discomfort due to not being able have a bowel movement. He has been taking stool softeners twice a day. Today took magnesium citrate. While in the waiting room patient had a bowel movement was feeling better is mild pain lower abdomen. He did feel distended which resolved with his bowel movement there is no nausea or vomiting. He has no fevers. No urinary symptoms. He has only been using Tylenol, he is avoiding the oxycodone as he states he is tolerating the pain. Tried calling his surgeon in the waiting room however they left for the day. Has appointment with his surgeon next week. Prior similar symptoms: No PFSH PFSH Medical History Hx of closed fracture of nasal bones Wears hearing aid Loss of hearing Marijuana use Alcohol use History of ulceration Non-smoker Cardiology follow-up encounter History of echocardiogram History of stress test Hx of fracture of ankle Umbilical hernia without obstruction or gangrene Metabolic syndrome Fatty liver Chemical exposure Obesity GERD (gastroesophageal reflux disease) Hyperlipidemia Home Medications ?Medication ?Instructions ?Recorded ?Last Taken ?Type fenofibrate nanocrystallized 48 mg 48 mg PO QDAY 90 days #90 tabs 05/14/17 Unknown History tablet omeprazole 40 mg capsule,delayed 40 mg PO QDAY 90 days #90 caps 05/14/17 Unknown History release pravastatin 20 mg tablet 80 mg PO QHS 90 days #360 tabs 01/15/24 Unknown History oxycodone-acetaminophen 5 mg-325 1 tab PO Q8H PRN pain 3 days #14 01/27/24 Unknown Rx mg tablet (Percocet) tabs Allergy/AdvReac Type Severity Reaction Status Date / Time No Known Allergies Allergy Verified 01/31/24 16:16 Family History Brother Cancer Pancreatic cancer Sister Cancer kidney cancer Father Cancer glioma Mother Hypertension Sister Heart disease Congenital heart disease Surgical History Hx of colonoscopy History of carpal tunnel surgery of right wrist History of carpal tunnel surgery of left wrist Social History Smoking Status: Never smoker alcohol intake: never caffeine: Yes Type: coffee Number of servings: 4 ROS ROS ED Constitutional Constitutional ED: Denies chills, fever(s) or sweats Eyes Eyes: Denies change in vision ENT ENT ED: Denies dysphagia or sore throat Cardiovascular Cardiovascular: Denies chest pain, leg edema, palpitations or racing heartbeat Respiratory/Chest Respiratory/Chest: Denies cough, dyspnea or dyspnea on exertion Gastrointestinal Gastrointestinal: Reports abdominal pain and constipation; Denies diarrhea, nausea or vomiting Genitourinary Genitourinary ED: Denies dysuria, hematuria or urinary frequency Musculoskeletal Musculoskeletal: Denies back pain, extremity pain or neck pain Integumentary Denies rash or wounds Neurologic Neurologic: Denies headache(s), paresthesias or weakness EXAM Physical Exam Const Vital Signs: 01/31/24 16:14 Temperature 98.2 F Temperature Source Oral Pulse Rate 87 Respiratory Rate 16 Blood Pressure 138/99 H Blood Pressure Mean 112 Pulse Ox 98 Oxygen Delivery Method Room Air Positive well nourished and well developed General Appearance ED: well developed and NAD HEENT Reports moist mucous membranes normocephalic and atraumatic Eyes EOMs intact bilaterally and conjunctivae normal General Eye ED: Yes normal appearance of both eyes Neck no lymphadenopathy and supple General: Negative for tenderness Chest Wall Chest: Negative for tenderness Resp normal respiratory effort and normal air movement Effort and Inspection: symmetric chest movement; Negative for respiratory distress Cardio regular rate, regular rhythm and no murmurs Peripheral Pulses: pulses 2+ throughout GI normal to inspection, nondistended, normoactive bowel sounds GI Narrative: Dressing over umbilical region clean, dry, intact. There is very mild t enderness just inferior left of the dressing. There is no bulging. There is no redness. There is no distention. Palpation: Negative for guarding or rebound tenderness present Back/Spine no CVA tenderness and no thoracic nor lumbar tenderness Extremity normal to inspection General Extremety ED: Negative for edema or tenderness General Extremity: Negative for edema Neuro oriented x3 and no sensory deficits noted Sensorium / Orientation: awake and alert Skin no rashes or lesions noted and no wounds MDM MDM MDM Narrative Medical decision making narrative: Interventions / MDM: Differential diagnosis: Constipation, postop pain Diagnosis considered but do not suspect: Normal bowel sounds no distention no vomiting, no clinical bowel obstruction. My EKG interpretation: N/A Imaging independently reviewed and interpreted by myself: N/A External documents reviewed: N/A Test considered but not ordered:N/A ED course: Patient vital signs stable nontoxic. Due to busy department was in the waiting room. Had bowel movement prior to my evaluation was feeling better. Has bowel sounds no distention no vomiting. Reported more firm stools prior to his bowel movement now feels better. He has a nonsurgical abdomen. Has no fevers for any postop complications at this time. No urinary symptoms. He is not using his opiate prescription. I did discuss with on-call surgeon Dr. Alegre, no fevers no vomiting improved symptoms with bowel movements. Agrees patient continue oral fluids for hydration continues Colace twice a day. He will keep his follow-up. Discussed return precautions to the patient. They understand agree with plan. All questions were answered. Re-evaluation: stable Disposition discussed with patient/family/significant other: Patient Case discussed with consulting clinician: General Surgery This note was generated with [employer] dictation software. It may contain incorrect words, spelling, and punctuation that were not noted in checking the note before signing. Discharge Plan Triage Chief Complaint: Abd Pain ED Provider: Nii Barboza Dx/Rx/DC Orders Clinical Impression: Post-op pain, Constipation Instructions: Managing Post-Op Pain at Home, ED Constipation (Adult) Prescriptions: No Action omeprazole 40 mg capsule,delayed release(DR/EC) 40 mg PO QDAY 90 Days Qty: 90 Patient Comments: fenofibrate nanocrystallized 48 mg tablet 48 mg PO QDAY 90 Days Qty: 90 Patient Comments: pravastatin 20 mg tablet 80 mg PO QHS 90 Days Qty: 360 Patient Comments: oxycodone-acetaminophen [Percocet] 5-325 mg tablet 1 tab PO Q8H PRN (Reason: pain) 3 Days Qty: 14 0RF Primary Care Provider: Cynthia Myles Referrals: Cynthia Myles DO [Primary Care Provider] - Julian Allred MD [Med Staff - Active Staff] - Keep Azam appointment Activity Restrictions/Additional Instructions: Discussed with Dr. Alegre in the ED. Continue oral fluids at home for hydration. Continue Colace twice a day. Follow-up with Dr. Allred. If you develop fevers worsening pain, nausea and vomiting not controlled with medication, return to ED for reevaluation. Print Language: [place] Disposition Disposition: Home, Self Care
[2024-01-31 18:52] VITALS: BP 149/79; PULSE 81; RESP 16; TEMP 36.6; O2SAT 99
== END 2024-01-31 18:53 | disposition home or self-care (01) ==
PROVIDERS: Emergency Provider Emergency Medicine; PCP Internal Medicine; Visit Provider Emergency Medicine
DX: K59.00 Constipation, unspecified (principal); R10.30 Lower abdominal pain, unspecified; G89.18 Other acute postprocedural pain; Z98.890 Other specified postprocedural states; K21.9 Gastro-esophageal reflux disease without esophagitis; E78.5 Hyperlipidemia, unspecified
CPT/HCPCS: 99282

== ENCOUNTER → 2024-07-17 | Outpatient (CLI) | payer OTHER, SELFPAY ==
[2024-07-17 09:57] LABS: Bacteria 0 SEEN /hpf (None Seen); Red Blood Cells-Urine 0 SEEN /hpf (0-5); Squamous Epithelial Cells - UA 0 SEEN /hpf (0-5)
[2024-07-17 10:19] LABS: Absolute Lymphocyte Count 1.49 X10^3/uL (0.83-4.51); Absolute Neutrophil Count 3.2 X10^3/uL (2.0-7.7); Basophil# 0.06 X10^3/uL; Basophil% 1.1 % (0-1); Eosinophil# 0.09 X10^3/uL; Eosinophils% 1.7 % (0-5); Hematocrit 47.3 % (40-54); Lymphocyte # 1.49 X10^3/ul (0.83-4.51); Lymphocyte % 28.2 % (19-41); Mean Corp Hgb Conc 33.8 g/dL (32-36); Mean Corpuscular Hgb 31.6 pg (27.0-32.0); Mean Corpuscular Volume 93.3 fL (80-94); Mean Platelet Vol. 9.7 fl (6.2-12.0); Monocyte# 0.43 X10^3/uL; Monocyte% 8.1 % (0-10); NRBC Flagged by Analyzer 0 % (0-5); Neutrophil % 60.7 % (47-70); Platelet Count 247 K/mm3 (150-450); RBC Distribution Width SD 41.3 fl (35.1-43.9); Red Blood Count 5.07 M/mm3 (4.6-6.2); White Blood Count 5.3 K/mm3 (4.4-11.0)
[2024-07-17 10:39] LABS: Color, Urine Yellow (Yellow); Glucose, Dipstick Normal (Normal); Ketone-Dipstick Negative (Negative); Leukocyte Esterase-Dipstick Negative /ul (Negative); Nitrite-Dipstick Negative (Negative); Occult Blood-Urine Negative /ul (Negative); Protein-Dipstick 30 mg/dl (Negative); Urine Bilirubin Dipstick Negative (Negative); Urine Clarity Clear (Clear); Urine Urobilinogen Normal (Normal)
[2024-07-17 10:51] LABS: Mucous, Urine 1+ /hpf (<or=2+); White Blood Cells 0-5 SEEN /hpf (0-5)
[2024-07-17 10:52] LABS: Coarse Granular Cast 0-5 SEEN /lpf (0-5 /lpf); Fine Granular Cast- Urine 0-5 SEEN /lpf (0-5); Hyaline Cast 5-10 SEEN /lpf (0-5)
[2024-07-17 10:53] LABS: White Cell Cast 0-5 SEEN /lpf (None Seen)
[2024-07-17 10:58] LABS: Microalbumin,Random Urine 91.1 mg/L (NO RANGE EST.)
[2024-07-17 11:26] LABS: ALB/GLOB Ratio 1.6 RATIO (0.9-2.4); AST(SGOT) 32 U/L (<=37); Alanine Aminotransfer ALT/SGPT 33 U/L (<=46); Albumin, Serum 4.4 g/dL (3.4-4.8); Alkaline Phosphatase 57 U/L (40-129); Anion Gap 10 (5-15); BUN 17 mg/dL (4-19); BUN/Creat Ratio 16.1 RATIO (10-20); Calcium,Total 10.1 mg/dL (7.6-11.0); Carbon Dioxide 24.4 mmol/L (21.0-32.0); Chloride 105 mmol/L (98-108); Cholesterol 171 mg/dL (<=200); Creatinine, Serum 1.03 mg/dL (0.70-1.20); EST Glomerular Filtration Rate 81 (>60); Globulin 2.8 g/dL (2.2-4.2); Glucose 99 mg/dL (70-99); High Density Lipoprotein 58 mg/dL; Low Density Lipoprotein Calc. 91 mg/dL; Potassium 4.6 mmol/L (3.3-5.1); Protein, Total 7.2 g/dL (5.9-8.4); Sodium Level 139 mmol/L (133-145); Total Bilirubin 0.59 mg/dL (0.00-1.30); Triglycerides 107 mg/dL; Very Low Density Lipoprotein 21 mg/dL (5-40); cholesterol:hdl ratio screen 2.93
== END | disposition home or self-care (01) ==
LOC: LAB 09:41
PROVIDERS: PCP Internal Medicine; Referring Provider Internal Medicine; Visit Provider Internal Medicine
DX: E11.9 Type 2 diabetes mellitus without complications (principal)
CPT/HCPCS: 36415; 80053; 80061; 81001; 82043; 82570; 84443; 85025